=== PATIENT | male | born 1950 | race Caucasian/White ===

== ENCOUNTER 2021-07-21 08:38 | Emergency (ER) | payer MEDICARE, OTHER ==
[~2021-07-21 08:38] MED LIST: ASCORBIC ACID500 MG PO; CALCIUM600 MG PO; CERTAGEN1 EACH PO; GORDO-VITE A2400 GM PO; IRON18 MG PO; L-LYSINE500 MG PO; MAGNESIUM250 M1 PO; VITAMIN D325 MC1 PO; VITAMIN E400 UNI2 PO
[2021-07-21 09:33] LABS: BASOPHIL 0.3 % (0-2); EOSINOPHIL 0.8 % (0-7); HGB 15.1 g/dl (13.2-18.0); LYMPHOCYTE 26.3 % (15-48); MCH 30.8 pg (25.0-31.0); MCHC 34.3 g/dL (32.0-36.0); MCV 89.6 fL (78.0-100.0); MONOCYTE 13.3 % (0-12); MPV 9.3 fL (6.0-9.5); NRBC 0; PLT 180 K/uL (150-400); RBC 4.91 M/uL (4.70-6.00); RDW 11.8 % (11.5-14.0); WBC 3.8 K/uL (4.0-10.5)
[2021-07-21 09:56] LABS: BUN/CREAT RATIO (CALC) 13.1 RATIO; CREATININE 0.61 mg/dL (0.67-1.17); POTASSIUM 4.2 mmol/L (3.5-5.1)
[2021-07-21] MEDS ORDERED: MEDROL 4MG DOSEP4 MG PO (10:18)
== END 2021-07-21 12:59 | disposition home or self-care (01) ==
LOC: FER 08:38
PROVIDERS: Emergency Medicine
DX: U07.1 COVID-19 (principal)
CPT/HCPCS: 36415; 71045; 80048; 85025; M0243; Q0244

== ENCOUNTER 2022-05-03 11:38 | Day surgery (SDCO) | payer MEDICARE, OTHER ==
[~2022-05-03] VITALS: Ht 172.7 cm; Wt 68.0 kg
[~2022-05-03 11:38] MED LIST changes: +MEDROL 4MG DOSEP4 MG PO
[2022-05-03 12:22] LABS: BASOPHIL 0.2 % (0-2); EOSINOPHIL 0.4 % (0-7); HCT 44.4 % (42.0-52.0); HGB 15.4 g/dl (13.2-18.0); MCH 31.5 pg (25.0-31.0); MCHC 34.7 g/dL (32.0-36.0); MCV 90.8 fL (78.0-100.0); MONOCYTE 6.8 % (0-12); MPV 9.5 fL (6.0-9.5); NEUTROPHIL 76.4 % (41-80); NRBC 0; PLT 208 K/uL (150-400); RBC 4.89 M/uL (4.70-6.00); RDW 12.3 % (11.5-14.0)
[2022-05-03 12:22] LABS: BILIRUBIN NEGATIVE (NEGATIVE); BLOOD NEGATIVE Ery/uL (NEGATIVE); CLARITY CLEAR (CLEAR); COLOR YELLOW (YELLOW); GLUCOSE (U) NORMAL (NORMAL); LEUKOCYTES NEGATIVE Leu/uL (NEGATIVE); NITRITE NEGATIVE (NEGATIVE); PROTEIN NEGATIVE (NEGATIVE); UROBILINOGEN 0.2 mg/dL (0.2-1.0)
[2022-05-03 12:33] LABS: BILIRUBIN - TOTAL 0.8 mg/dL (0.2-1.0); BUN/CREAT RATIO (CALC) 16.7 RATIO; CREATININE 0.6 mg/dL (0.67-1.17); GLOBULIN (CALCULATION) 2.8 g/dL; POTASSIUM 3.8 mmol/L (3.5-5.1); TOTAL PROTEIN 6.8 g/dL (6.4-8.2)
[2022-05-04 06:15] LABS: BASOPHIL 0.5 % (0-2); EOSINOPHIL 1.4 % (0-7); HCT 39.8 % (42.0-52.0); HGB 13.5 g/dl (13.2-18.0); LYMPHOCYTE 29.2 % (15-48); MCH 31.3 pg (25.0-31.0); MCHC 33.9 g/dL (32.0-36.0); MCV 92.1 fL (78.0-100.0); MPV 9.5 fL (6.0-9.5); NEUTROPHIL 57.9 % (41-80); NRBC 0; PLT 171 K/uL (150-400); RBC 4.32 M/uL (4.70-6.00); RDW 12.3 % (11.5-14.0); WBC 4.2 K/uL (4.0-10.5)
[2022-05-04 06:32] LABS: BUN/CREAT RATIO (CALC) 9.7 RATIO; CREATININE 0.72 mg/dL (0.67-1.17); MAGNESIUM 1.9 mg/dL (1.8-2.4); POTASSIUM 4.2 mmol/L (3.5-5.1)
--- NOTE | 2022-05-04 14:04 | NUR ---
Mr. Breen lives at home with his spouse. He is independent in the home and community. No discharge planning needs are anticipated.
== END 2022-05-04 16:32 | disposition home or self-care (01) ==
LOC: FER 11:38 → FMS 14:11
PROVIDERS: Emergency Medicine; ADMIT Internal Medicine
DX: K56.699 Other intestinal obstruction unspecified as to partial versus complete obstruction (principal); E87.1 Hypo-osmolality and hyponatremia; E86.1 Hypovolemia; M19.90 Unspecified osteoarthritis, unspecified site; I10 Essential (primary) hypertension; Z87.891 Personal history of nicotine dependence; Z79.899 Other long term (current) drug therapy
CPT/HCPCS: 36415; 74019; 80048; 80053; 81003; 83605; 83690; 83735; 84145; 84484; 85025; 93005; 94010; G0378; J7120; Q9967